=== PATIENT | female | born 1935 | race Caucasian/White ===

== ENCOUNTER 2017-07-13 16:36 | Emergency (ER) | payer OTHER ==
--- NOTE | 2017-07-13 17:03 | EDPHY ---
H & P Stated Complaint: pulled weed in garden heard a snap in back/unable to [place] wt Time Seen by Provider: 07/13/17 17:02 HPI/ROS: CHIEF COMPLAINT: Back pain HISTORY OF PRESENT ILLNESS: The patient is a 81 y/o female with cardiac disease history who arrives with her complaining of acute onset lower back pain while weeding this afternoon. She describes pulling up a weed and suddenly feeling and hearing an "awful snap in my back." She could not stand up and had to crawl to the house to get help from her . She couldn't stand up due to leg weakness and says "it just wasn't working." No associated incontinence or numbness. Eventually she was able to get up and use a walker to get to the car to come to the ED. and could not get up" crawled to house. She has a weak left foot at baseline related to tarsal tunnel syndrome and normally uses a cane to walk around. Upon assessment sitting in the bed here she denies any current pain or symptoms. She takes a baby aspirin. No anticoagulants. REVIEW OF SYSTEMS: A ten point review of systems was performed and is negative with the exception of the items mentioned in the HPI. Past medical history: 1. Sick sinus syndrome post pacemaker 2. Severe aortic stenosis with passive pulmonary hypertension post aortic valve replacement 3. CAD, non-obstructive 4. Interstitial cystitis 5. Osteoporosis 6. Weak left foot - tarsal tunnel syndrome 7. Diverticulosis 8. Occasional incontinence 9. Acid reflux with laryngitis Past surgical history: 1. Pacemaker - Biotronik 2. Aortic valve replacement 3. Heart catheterizations 2015, 2016 4. Basal cell lesion removal; squamous cell lesion removals 5. Tarsal tunnel syndrome release left ankle 6. Hysterectomy without oophorectomy 7. Appendectomy 8. Tonsillectomy Family history: Noncontributory Social history: at bedside. 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 Nonsmoker. No alcohol use. PCP: Dr. Sainz. White Washer: Dr. Moore. General Appearance: Alert. Vital signs reviewed. Blood pressure 176/72. Eyes: Pupils equal and round, no conjunctival injection, no discharge. Anicteric. ENT, Mouth: Mucous membranes are moist, no oropharyngeal erythema or edema. Neck: No lymphadenopathy, supple. Respiratory: Lungs are clear to auscultation; no wheezes, rales, or rhonchi. Cardiovascular: Regular rate and rhythm; no rub or gallop. 3/6 murmur over aorta. Gastrointestinal: Abdomen is soft and nontender, no masses or organomegaly. Skin: Warm and dry, no rashes on exposed skin, normal color. Back: Nontender to palpation over the thoracolumbar spine. No CVAT. Extremities: No lower extremity edema, no calf tenderness or swelling. Neurological: Alert and oriented. Moving all four extremities easily and equally. Strength is 5 over 5 bilaterally with testing of all major motor groups. Sensation is intact to light touch over all 4 extremities. Deep tendon reflexes are 2+ in knees bilaterally, 0 in ankles bilaterally. Able to walk slowly without assistance. Psychiatric: Normal affect. - Personal History Current Tetanus/Diphtheria Vaccine: Yes - Medical/Surgical History Hx Asthma: No Hx Chronic Respiratory Disease: Yes Hx Diabetes: No Hx Cardiac Disease: Yes Hx Renal Disease: No Hx Cirrhosis: No Hx Alcoholism: No Hx HIV/AIDS: No Hx Splenectomy or Spleen Trauma: No Other PMH: aortic valve prosthetic September 2015. pacemaker 08/26/2014. interstitial cystitis. basal and squamous cell CA - Social History Smoking Status: Never smoked Constitutional: Initial Vital Signs Temperature (C) 36.4 C 07/13/17 16:48 Heart Rate 81 07/13/17 16:48 Respiratory Rate 18 07/13/17 16:48 Blood Pressure 176/72 H 07/13/17 16:48 O2 Sat (%) 99 07/13/17 16:48 O2 Delivery Mode Room Air Allergies/Adverse Reactions: ciprofloxacin [From Cipro] Allergy (Intermediate, Verified 12/24/15 20:11) neuropathy hydrochlorothiazide Allergy (Intermediate, Verified 12/24/15 20:11) aggravates cystitis lisinopril Allergy (Intermediate, Verified 12/24/15 20:11) decreased kidney function NSAIDS (Non-Steroidal Anti-Inflamma Allergy (Intermediate, Verified 12/24/15 20: 11) aggravates cystitis cimetidine HCl [From Tagamet] Allergy (Mild, Verified 12/24/15 16:19) loose stools labetalol Allergy (Mild, Verified 12/24/15 20:11) aggravates cystitis nitrofurantoin [From Macrobid] Allergy (Mild, Verified 12/24/15 20:11) Fever nitrofurantoin macrocrystalline [From Macrobid] Allergy (Mild, Verified 20:11) Fever sulfamethoxazole [From Bactrim] Allergy (Mild, Verified 12/24/15 16:21) Diarrhea Home Medications: Medication Instructions Recorded Aspirin EC [Aspirin EC 81 mg (*)] 81 mg PO BID 12/24/15 Estradiol [Estrace Vaginal (*)] 1 joanna VG HS 12/24/15 Herbals/Supplements -Info Only 1 ea PO DAILY 12/24/15 Medical Decision Making ED Course/Re-evaluation: This is a 81 y/o female with cardiac disease history and baseline left foot weakness who presents nearly asymptomatic after an episode of lower back pain and leg weakness while pulling weeds this afternoon. No other associated symptoms. She has no tenderness and a nonfocal neuro exam here. She is able to walk slowly without assistance, which is baseline for her. Doubt acute cauda equina syndrome or other etiology requiring emergent imaging particularly given resolution of her symptoms and nonfocal exam here. Recommended discharge with standard back pain care and follow up instructions. Strict return precautions discussed. She and her are happy with this plan. She is noted to have high blood pressure in the emergency department. She is aware of this will have it checked by her primary care physician. Differential Diagnosis: I considered a differential diagnosis of Back pain including but not limited to muscular pain, herniated disc or other compressive mass, diskitis, epidural abscess, spine fracture, intra-abdominal causes and urinary tract infection. Departure - Departure Disposition: Home, Routine, Self-Care Clinical Impression: Weakness Back pain Qualifiers: Back pain location: low back pain Chronicity: acute Back pain laterality: bilateral Sciatica presence: without sciatica Qualified Code(s): M54.5 - Low back pain Condition: Good Instructions: Back Pain (ED) Additional Instructions: 1. Try applying an ice pack intermittently to sore areas over the next couple days. You can also try a heating pad. Lidocaine patches recommended. 2. I recommend using Tylenol and ibuprofen as directed if needed for pain over the next few days. 3. If you continue to have pain, you may require an MRI for further evaluation. Follow up with Dr. Sainz as needed for unimproved symptoms over the next several days. 4. If you unexpectedly lose control of your bowel or bladder, develop severe pain, if one leg is suddenly weak or numb, or you develop other worsening of condition return to the ED for evaluation. Adult Pain & Fever Control: We recommend Acetaminophen (Tylenol) and Ibuprofen (Motrin,Advil) for pain and fever control. When fever is high or pain severe, both drugs can be used at the same time, but at different intervals. Please note the time differences. Your dose is: Acetaminophen 650mg every 4 to 6 hours Ibuprofen 600mg every 6-8 hours with food Note: do not take Acetaminophen with Hydrocodone (Vicodin, Lortab) or Oxycodone (Percocet). These medications also contain Acetaminophen. No more than 3000mg of Acetaminophen should be taken in 24 hours (for an adult). Referrals: Manuela Sainz MD [Primary Care Provider] - As per Instructions Report Scribed for: Valerie Holm Report Scribed by: Thelma Hagen Date of Report: 07/13/17 Time of Report: 17:26 Physician Review and Approval Statement: 07/18/17 15:29 Portions of this note were transcribed by the medical grade shoemaker. I, Dr. Valerie Holm, personally performed the history, physical exam, and medical decision- making; and confirmed the accuracy of the information in the transcribed note.
[2017-07-13 18:06] VITALS: BP 163/73
== END 2017-07-13 18:06 | disposition home or self-care (01) ==
DX: M54.5 Low back pain (principal); R53.1 Weakness; I25.10 Atherosclerotic heart disease of native coronary artery without angina pectoris; Z79.82 Long term (current) use of aspirin; Z85.828 Personal history of other malignant neoplasm of skin; Z95.0 Presence of cardiac pacemaker

== ENCOUNTER 2018-01-05 09:34 | Emergency (ER) | payer OTHER ==
[2018-01-05 10:23] LABS: PLATELET COUNT 248 10^3/uL (150-400)
--- NOTE | 2018-01-05 10:23 | EDPHY ---
H & P Stated Complaint: Dizzy Time Seen by Provider: 01/05/18 10:06 HPI/ROS: CHIEF COMPLAINT: Presyncope HISTORY OF PRESENT ILLNESS: The patient presents to the ED with symptoms of presyncope that have been occurring this morning. The patient denies any fever , cough, chest pain, shortness of breath or other acute complaints. The patient does have a history of arrhythmia. She has a pacemaker in place. The patient is currently anticoagulated with Eliquis. The patient does have a history of a left upper extremity DVT. She also has a history of interstitial cystitis. She denies any acute urinary complaints. The patient denies melena. She denies any focal neurologic deficits. REVIEW OF SYSTEMS: A comprehensive 10 point review of systems is otherwise negative aside from elements mentioned in the history of present illness. Source: Patient, Family - Personal History Current Tetanus/Diphtheria Vaccine: Yes - Medical/Surgical History Hx Asthma: No Hx Chronic Respiratory Disease: Yes Hx Diabetes: No Hx Cardiac Disease: Yes Hx Renal Disease: No Hx Cirrhosis: No Hx Alcoholism: No Hx HIV/AIDS: No Hx Splenectomy or Spleen Trauma: No Other PMH: aortic valve prosthetic September 2015. pacemaker 08/26/2014. interstitial cystitis. basal and squamous cell CA - Social History Smoking Status: Never smoked - Physical Exam Exam: General Appearance: Alert, no distress Eyes: Pupils equal and round no pallor or injection ENT, Mouth: Mucous membranes moist Respiratory: There are no retractions, lungs are clear to auscultation Cardiovascular: 2/6 systolic ejection murmur Gastrointestinal: Abdomen is soft and nontender, no masses, bowel sounds normal Neurological: A&O, normal motor function, normal sensory exam, normal cranial nerves Skin: Warm and dry, no rashes Musculoskeletal: Neck is supple nontender Extremities: symmetrical, full range of motion Psychiatric: Patient is oriented X 3, there is no agitation Constitutional: Initial Vital Signs Temperature (C) 36.4 C 01/05/18 09:38 Heart Rate 75 01/05/18 09:38 Respiratory Rate 18 01/05/18 09:38 Blood Pressure 177/71 H 01/05/18 09:38 O2 Sat (%) 98 01/05/18 09:38 O2 Delivery Mode Room Air Allergies/Adverse Reactions: ciprofloxacin [From Cipro] Allergy (Intermediate, Verified 01/05/18 09:43) neuropathy hydrochlorothiazide Allergy (Intermediate, Verified 01/05/18 09:43) aggravates cystitis lisinopril Allergy (Intermediate, Verified 01/05/18 09:43) decreased kidney function NSAIDS (Non-Steroidal Anti-Inflamma Allergy (Intermediate, Verified 01/05/18 09: 43) aggravates cystitis cimetidine HCl [From Tagamet] Allergy (Mild, Verified 01/05/18 09:43) loose stools labetalol Allergy (Mild, Verified 01/05/18 09:43) aggravates cystitis nitrofurantoin [From Macrobid] Allergy (Mild, Verified 01/05/18 09:43) Fever nitrofurantoin macrocrystalline [From Macrobid] Allergy (Mild, Verified 09:43) Fever sulfamethoxazole [From Bactrim] Allergy (Mild, Verified 01/05/18 09:43) Diarrhea Home Medications: Medication Instructions Recorded Aspirin EC [Aspirin EC 81 mg (*)] 81 mg PO BID 12/24/15 Estradiol [Estrace Vaginal (*)] 1 joanna VG HS 12/24/15 Herbals/Supplements -Info Only 1 ea PO DAILY 12/24/15 Medical Decision Making - Diagnostics EKG Interpretation: EKG: Complete interpretation has been separately recorded in the [facility] archive. Summary impression: Av paced rhythm, rate 73 ED Course/Re-evaluation: The patient presents to the ED after an episode of presyncope. She arrives and is noted to be neurologically intact. Blood pressure and heart rate are normal. EKG demonstrates a paced rhythm. Workup in the emergency department demonstrates no evidence of an acute anemia or metabolic derangement. Her urinalysis demonstrates no evidence of a UTI. The patient was treated with a L of normal saline in the emergency department for likely vasovagal presyncope. The patient underwent serial examinations here without evidence of recurrent presyncope, hypotension or orthostasis. At this point time I do feel the patient can be discharged home. She is given customary aftercare instructions and return precautions. Differential Diagnosis: Differential diagnosis considered includes vasovagal syncope, dehydration, arrhythmia, metabolic abnormality, stroke, TIA - Data Points Laboratory Results: Laboratory Results 01/05/18 10:00 01/05/18 10:00 01/05/18 01/05/18 01/05/18 11:05 10:00 10:00 WBC 5.37 10^3/uL 10^3/uL (3.80-9.50) RBC 4.69 10^6/uL 10^6/uL (4.18-5.33) Hgb 14.4 g/dL g/dL (12.6-16.3) Hct 43.2 % % (38.0-47.0) MCV 92.1 fL fL (81.5-99.8) MCH 30.7 pg pg (27.9-34.1) MCHC 33.3 g/dL g/dL (32.4-36.7) RDW 12.9 % % (11.5-15.2) Plt Count 248 10^3/uL 10^3/uL (150-400) MPV 10.3 fL fL (8.7-11.7) Neut % (Auto) 74.1 % % (39.3-74.2) Lymph % (Auto) 19.2 % % (15.0-45.0) Esmeralda % (Auto) 6.1 % % (4.5-13.0) Eos % (Auto) 0.2 % L % (0.6-7.6) Baso % (Auto) 0.2 % L % (0.3-1.7) Nucleat RBC Rel Count 0.0 % % (0.0-0.2) Absolute Neuts (auto) 3.98 10^3/uL 10^3/uL (1.70-6.50) Absolute Lymphs (auto) 1.03 10^3/uL 10^3/uL (1.00-3.00) Absolute Monos (auto) 0.33 10^3/uL 10^3/uL (0.30-0.80) Absolute Eos (auto) 0.01 10^3/uL L 10^3/uL (0.03-0.40) Absolute Basos (auto) 0.01 10^3/uL L 10^3/uL (0.02-0.10) Absolute Nucleated RBC 0.00 10^3/uL 10^3/uL (0-0.01) Immature Gran % 0.2 % % (0.0-1.1) Immature Gran # 0.01 10^3/uL 10^3/uL (0.00-0.10) Sodium 137 mEq/L mEq/L (135-145) Potassium 4.3 mEq/L mEq/L (3.3-5.0) Chloride 98 mEq/L mEq/L (97-110) Carbon Dioxide 30 mEq/l mEq/l (22-31) Anion Gap 9 mEq/L mEq/L (8-16) BUN 14 mg/dL mg/dL (7-23) Creatinine 0.7 mg/dL mg/dL (0.6-1.0) Estimated GFR > 60 Glucose 96 mg/dL mg/dL (70-100) Calcium 9.7 mg/dL mg/dL (8.5-10.4) Urine Color PALE YELLOW Urine Appearance CLEAR Urine pH 7.0 (5.0-7.5) Ur Specific [place] 1.003 (1.002-1.030) Urine Protein NEGATIVE (NEGATIVE) Urine Ketones NEGATIVE (NEGATIVE) Urine Blood NEGATIVE (NEGATIVE) Urine Nitrate NEGATIVE (NEGATIVE) Urine Bilirubin NEGATIVE (NEGATIVE) Urine Urobilinogen NEGATIVE EU EU (0.2-1.0) Ur Leukocyte Esterase NEGATIVE (NEGATIVE) Urine Glucose NEGATIVE (NEGATIVE) Departure - Departure Disposition: Home, Routine, Self-Care Clinical Impression: Vasovagal syncope Condition: Good Instructions: Syncope (ED) Additional Instructions: 1. The testing in the emergency department today demonstrates no significant abnormality. 2. I do believe that mild dehydration may have contributed to your symptoms today. 3. At this point time I do not feel that further workup is indicated. I do feel you should return to the emergency department for any recurrent symptoms, chest pain, difficulty breathing, numbness, weakness or other concerns. 4. Please schedule a follow-up appointment with your primary care provider as needed. Referrals: Manuela Sainz MD [Primary Care Provider] - As per Instructions
--- NOTE | 2018-01-05 10:23 | CPEKG ---
Test Reason : OPEN Blood Pressure : / mmHG Vent. Rate : 073 BPM Atrial Rate : 072 BPM P-R Int : 160 ms QRS Dur : 077 ms QT Int : 399 ms P-R-T Axes : 072 047 062 degrees QTc Int : 440 ms Atrial-paced rhythm Confirmed by Jovi Lua ([id number]) on 01/05/2018 10:23:27 AM Referred By: Confirmed By:Jovi Lua
[2018-01-05 12:10] VITALS: BP 162/74
== END 2018-01-05 12:11 | disposition home or self-care (01) ==
DX: R55 Syncope and collapse (principal); Z79.01 Long term (current) use of anticoagulants; Z86.718 Personal history of other venous thrombosis and embolism; Z95.2 Presence of prosthetic heart valve; Z95.0 Presence of cardiac pacemaker